=== PATIENT | male | born 1955 | race Caucasian/White ===

== ENCOUNTER 2018-07-30 10:34 | Emergency (ER) | payer MEDICAID ==
[~2018-07-30] VITALS: Ht 175.3 cm; Wt 91.7 kg
[~2018-07-30 10:34] MED LIST: METF500T27
--- NOTE | 2018-07-30 11:23 | NUR ---
PT REPORTS PAIN IN BOTH SHOULDERS X 2 MONTHS WITH LIMITED ACTIVE ROM. PT REPORTS PAIN IN HIS RIGHT HAND THAT HAS GOTTEN PROGRESSIVELY WORSE SINCE 2010. PAIN IN ALL LOCATIONS RATED 9/10.
[2018-07-30 11:26] VITALS: BP 143/84
--- NOTE | 2018-07-30 11:51 | NUR ---
ER MD TO ROOM TO ASSESS PT
[2018-07-30 12:08] LABS: BASOPHILS # (AUTO) 0.03 x10^3/uL (0-0.1); BASOPHILS % (AUTO) 0 % (0-1); EOSINOPHILS # (AUTO) 0.16 x10^3/uL (0-0.4); EOSINOPHILS % (AUTO) 2 % (1-7); LYMPHOCYTES # (AUTO) 1.84 x10^3/uL (1-3.4); LYMPHOCYTES % (AUTO) 23 % (22-44); MD NO; MEAN CORPUSCULAR HEMOGLOBIN 32.3 pg (27.5-34.5); MEAN CORPUSCULAR HGB CONC 34.1 g/dL (33.2-36.2); MEAN CORPUSCULAR VOLUME 94.8 fL (81-97); MEAN PLATELET VOLUME 7.9 fL (7.4-10.4); MONOCYTES # (AUTO) 0.44 x10^3/uL (0.2-0.8); MONOCYTES % (AUTO) 6 % (2-9); NEUTROPHILS # (AUTO) 5.36 x10^3/uL (1.8-6.8); NEUTROPHILS % (AUTO) 68 % (42-75); PLATELET COUNT 261 x10^3/uL (130-400); RED BLOOD COUNT 5.23 x10^6/uL (4.38-5.82); RED CELL DISTRIBUTION WIDTH 13.5 % (9.4-14.8)
[2018-07-30 12:21] LABS: CHLORIDE 107 mmol/L (98-107)
[2018-07-30 12:52] LABS: ANION GAP 8 mmol/L (5-15); CALCIUM 8.8 mg/dL (8.5-10.1); CREATININE 0.83 mg/dL (0.7-1.3)
--- NOTE | 2018-07-30 12:52 | NUR ---
preceptor rn: lab called to inquire about delay in chem panel, per Sarah in lab the chem should be completed by 1255.
--- NOTE | 2018-07-30 13:35 | NUR ---
PT AMBULATORY TO BR
== END 2018-07-30 13:57 | disposition home or self-care (01) ==
LOC: ED 13:41
DX: G56.01 Carpal tunnel syndrome, right upper limb (principal); G89.29 Other chronic pain; M25.512 Pain in left shoulder; M25.511 Pain in right shoulder; E11.65 Type 2 diabetes mellitus with hyperglycemia; I10 Essential (primary) hypertension; Z72.9 Problem related to lifestyle, unspecified
CPT/HCPCS: 36415; 80048; 82962; 85025; 93005; 99284

== ENCOUNTER 2018-08-05 16:09 | Inpatient (IN) | payer MEDICAID ==
[~2018-08-05] VITALS: Ht 177.8 cm; Wt 91.3 kg
[2018-08-05] MEDS ORDERED: SODIUM CHLORIDE FLUSH 10ML SYR IVF ONE (16:30)
[2018-08-05 16:52] LABS: PH, VENOUS 7.421 pH (7.320-7.420)
[2018-08-05 16:55] LABS: O2 FLOW ROOM AIR L/min
[2018-08-05 16:56] LABS: MEAN CORPUSCULAR HEMOGLOBIN 31.5 pg (27.5-34.5); MEAN CORPUSCULAR HGB CONC 33.1 g/dL (33.2-36.2); MEAN PLATELET VOLUME 8.1 fL (7.4-10.4); PLATELET COUNT 278 x10^3/uL (130-400); RED BLOOD COUNT 6.01 x10^6/uL (4.38-5.82); RED CELL DISTRIBUTION WIDTH 13.5 % (9.4-14.8)
[2018-08-05] MEDS ORDERED: ONDANSETRON 2MG/ML, 2ML IVPush ONE (17:00)
[2018-08-05 17:07] LABS: ALANINE AMINOTRANSFERASE 53 U/L (12-78); ANION GAP 12 mmol/L (5-15); CALCIUM 9.8 mg/dL (8.5-10.1); CHLORIDE 104 mmol/L (98-107)
[2018-08-05] MEDS ORDERED: ONDANSETRON 2MG/ML, 2ML ONE (17:10)
[2018-08-05 17:13] LABS: ALKALINE PHOSPHATASE 85 U/L (45-117); BASOPHILS # (AUTO) 0.08 x10^3/uL (0-0.1); BASOPHILS % (AUTO) 1 % (0-1); CREATININE 2.25 mg/dL (0.7-1.3); EOSINOPHILS # (AUTO) 0.09 x10^3/uL (0-0.4); EOSINOPHILS % (AUTO) 1 % (1-7); LYMPHOCYTES # (AUTO) 2.25 x10^3/uL (1-3.4); LYMPHOCYTES % (AUTO) 17 % (22-44); MD NO; MONOCYTES % (AUTO) 8 % (2-9); NEUTROPHILS % (AUTO) 74 % (42-75); TOTAL PROTEIN 8.7 g/dL (6.4-8.2); TROPONIN I < 0.015 ng/mL (0.000-0.045)
[2018-08-05 17:18] LABS: ACETONE, SERUM Negative (Negative)
--- NOTE | 2018-08-05 17:19 | NUR ---
"I THINK I HAVE HEPATITIS AGAIN." PT REPORTS ABD PAIN AND CONCENTRATED URINE. FEVERS AT HOME PER PT. PT AAO X 4, STEADY GAIT. DRESSED IN GOWN AND ATTACHED TO MONITOR. SIDERAILS IN PLACE AND CALL LIGHT AND BELONGINGS IN REACH. EDUCATION PROVIDED.
[2018-08-05] MEDS ORDERED: SODIUM CHLORIDE 0.9% 1,000 ML IV ONE (17:54)
[2018-08-05] MEDS ORDERED: INSULIN REGULAR 100 UNITS/ML, 3ML VIAL SQ-INSULIN ONE (18:00)
[2018-08-05 18:11] LABS: CHOLESTEROL, TOTAL 236 mg/dL (140-239); TRIGLYCERIDES 416 mg/dL (50-200)
[2018-08-05 18:12] LABS: INTERNATIONAL NORMALIZED RATIO 1.05 (0.93-1.1)
[2018-08-05 18:14] LABS: CHOL/HDL RATIO 7.6; HDL CHOL % 13 % (26-37); HDL CHOLESTEROL (DIRECT) 31 mg/dL (40-60)
--- NOTE | 2018-08-05 18:59 | NUR ---
REPORT GIVEN TO DARNELL CRISTOBAL.
[2018-08-05 19:14] LABS: MICROSCOPIC INDICATED
[2018-08-05] MEDS ORDERED: INSULIN SINGLE DOSE, ER SQ-INSULIN ONE (19:30)
--- NOTE | 2018-08-05 19:34 | NUR ---
PT RESTING CALMLY, MEDICATED PERMAR, IV FLUIDS INFUSING, CALL LIGHT WITHIN REACH
[2018-08-05 19:39] LABS: CULTURE INDICATED? NO
[2018-08-05 19:48] VITALS: BP 121/82
[2018-08-05] MEDS ORDERED: ACETAMINOPHEN 325 MG TABLET PO PRN (21:00)
[2018-08-05] MEDS ORDERED: LABETALOL 5MG/ML, 20ML IVPush PRN (21:00)
[2018-08-05] MEDS ORDERED: ONDANSETRON 2MG/ML, 2ML IVPush PRN (21:00)
[2018-08-05 21:39] LABS: HEMOGLOBIN A1C 8.7 % (4.2-6.3)
[2018-08-05] MEDS: HEPARIN 5,000 UNITS/ML, 1ML SQ SCH (23:09)
[2018-08-05] MEDS: INSULIN LISPRO 100 UNITS/ML, PEN SQ-INSULIN SCH (23:10)
[2018-08-05] MEDS: LACTATED RINGERS 1,000 ML IV SCH (23:17)
[2018-08-06 01:47] VITALS: BP 115/75
[2018-08-06 05:37] LABS: BASOPHILS # (AUTO) 0.06 x10^3/uL (0-0.1); BASOPHILS % (AUTO) 1 % (0-1); EOSINOPHILS # (AUTO) 0.22 x10^3/uL (0-0.4); EOSINOPHILS % (AUTO) 2 % (1-7); LYMPHOCYTES % (AUTO) 35 % (22-44); MD NO; MEAN CORPUSCULAR HEMOGLOBIN 31.6 pg (27.5-34.5); MEAN CORPUSCULAR HGB CONC 33.1 g/dL (33.2-36.2); MEAN CORPUSCULAR VOLUME 95.3 fL (81-97); MEAN PLATELET VOLUME 8.1 fL (7.4-10.4); MONOCYTES # (AUTO) 0.67 x10^3/uL (0.2-0.8); MONOCYTES % (AUTO) 7 % (2-9); NEUTROPHILS % (AUTO) 56 % (42-75); PLATELET COUNT 239 x10^3/uL (130-400); RED CELL DISTRIBUTION WIDTH 13.5 % (9.4-14.8)
[2018-08-06 05:43] LABS: ANION GAP 9 mmol/L (5-15); CALCIUM 8.9 mg/dL (8.5-10.1); CHLORIDE 105 mmol/L (98-107)
[2018-08-06 05:58] LABS: CHOL/HDL RATIO 6.9; CHOLESTEROL, TOTAL 179 mg/dL (140-239); CREATININE 1.16 mg/dL (0.7-1.3); HDL CHOL % 15 % (26-37); HDL CHOLESTEROL (DIRECT) 26 mg/dL (40-60); LDL CHOLESTEROL,CALCULATED 88 mg/dL (54-169); LDL/HDL RATIO 3.4 (0.5-3.0); TRIGLYCERIDES 326 mg/dL (50-200); VLDL CHOLESTEROL 65 mg/dL (0-25)
[2018-08-06] MEDS: INSULIN LISPRO 100 UNITS/ML, PEN SQ-INSULIN SCH ×4 (07:00→21:11)
[2018-08-06] MEDS: HEPARIN 5,000 UNITS/ML, 1ML SQ SCH ×3 (07:00→21:11)
[2018-08-06 08:12] VITALS: BP 107/73
[2018-08-06] MEDS: LACTATED RINGERS 1,000 ML IV SCH ×2 (09:00→19:26)
[2018-08-06] MEDS: SENNA/DOCUSATE TABLET PO SCH (09:00)
[2018-08-06 15:59] VITALS: BP 123/80
[2018-08-06 19:41] VITALS: BP 112/68
[2018-08-06] MEDS: morphine SULFATE 10 MG/ML, 1ML IVPush PRN (20:04)
[2018-08-06] MEDS: OMEGA-3/FISH OIL CAPSULE PO SCH (21:00)
[2018-08-07 00:26] VITALS: BP 109/62
[2018-08-07 05:21] LABS: BASOPHILS # (AUTO) 0.06 x10^3/uL (0-0.1); BASOPHILS % (AUTO) 1 % (0-1); EOSINOPHILS # (AUTO) 0.28 x10^3/uL (0-0.4); EOSINOPHILS % (AUTO) 4 % (1-7); LYMPHOCYTES # (AUTO) 2.68 x10^3/uL (1-3.4); LYMPHOCYTES % (AUTO) 38 % (22-44); MD NO; MEAN CORPUSCULAR HEMOGLOBIN 32.2 pg (27.5-34.5); MEAN CORPUSCULAR VOLUME 94.9 fL (81-97); MEAN PLATELET VOLUME 8.2 fL (7.4-10.4); MONOCYTES # (AUTO) 0.47 x10^3/uL (0.2-0.8); MONOCYTES % (AUTO) 7 % (2-9); NEUTROPHILS # (AUTO) 3.59 x10^3/uL (1.8-6.8); NEUTROPHILS % (AUTO) 51 % (42-75); PLATELET COUNT 210 x10^3/uL (130-400); RED BLOOD COUNT 4.99 x10^6/uL (4.38-5.82); RED CELL DISTRIBUTION WIDTH 13.7 % (9.4-14.8)
[2018-08-07 05:33] LABS: ANION GAP 7 mmol/L (5-15); CALCIUM 8.6 mg/dL (8.5-10.1); CHLORIDE 109 mmol/L (98-107)
[2018-08-07 05:36] LABS: ALANINE AMINOTRANSFERASE 39 U/L (12-78); ALKALINE PHOSPHATASE 68 U/L (45-117); BILIRUBIN,TOTAL 0.6 mg/dL (0.2-1.0); CREATININE 0.78 mg/dL (0.7-1.3); TOTAL PROTEIN 6.7 g/dL (6.4-8.2)
[2018-08-07] MEDS: HEPARIN 5,000 UNITS/ML, 1ML SQ SCH ×3 (07:00→23:00)
[2018-08-07] MEDS: INSULIN LISPRO 100 UNITS/ML, PEN SQ-INSULIN SCH ×4 (07:00→20:06)
[2018-08-07 07:30] VITALS: BP 112/68
[2018-08-07] MEDS: OMEGA-3/FISH OIL CAPSULE PO SCH ×3 (07:58→20:08)
[2018-08-07] MEDS: SENNA/DOCUSATE TABLET PO SCH (07:58)
[2018-08-07] MEDS: LACTATED RINGERS 1,000 ML IV SCH (10:37)
[2018-08-07] MEDS: morphine SULFATE 10 MG/ML, 1ML IVPush PRN ×2 (10:46→20:07)
[2018-08-07 14:11] VITALS: BP 119/80
[2018-08-07 19:31] VITALS: BP 128/82
[2018-08-08] MEDS: LACTATED RINGERS 1,000 ML IV SCH (00:09)
[2018-08-08 01:36] VITALS: BP 114/74
[2018-08-08 05:29] LABS: BASOPHILS # (AUTO) 0.04 x10^3/uL (0-0.1); BASOPHILS % (AUTO) 1 % (0-1); EOSINOPHILS # (AUTO) 0.24 x10^3/uL (0-0.4); EOSINOPHILS % (AUTO) 3 % (1-7); LYMPHOCYTES # (AUTO) 2.69 x10^3/uL (1-3.4); LYMPHOCYTES % (AUTO) 38 % (22-44); MD NO; MEAN CORPUSCULAR HEMOGLOBIN 32.2 pg (27.5-34.5); MEAN CORPUSCULAR HGB CONC 33.8 g/dL (33.2-36.2); MEAN CORPUSCULAR VOLUME 95.1 fL (81-97); MEAN PLATELET VOLUME 8.2 fL (7.4-10.4); MONOCYTES # (AUTO) 0.43 x10^3/uL (0.2-0.8); MONOCYTES % (AUTO) 6 % (2-9); NEUTROPHILS # (AUTO) 3.74 x10^3/uL (1.8-6.8); NEUTROPHILS % (AUTO) 52 % (42-75); PLATELET COUNT 209 x10^3/uL (130-400); RED CELL DISTRIBUTION WIDTH 13.2 % (9.4-14.8)
[2018-08-08 05:35] LABS: ALBUMIN 2.9 g/dL (3.4-5.0); ANION GAP 6 mmol/L (5-15); CALCIUM 8.6 mg/dL (8.5-10.1); CHLORIDE 108 mmol/L (98-107)
[2018-08-08 05:39] LABS: ALANINE AMINOTRANSFERASE 41 U/L (12-78); ALKALINE PHOSPHATASE 68 U/L (45-117); BILIRUBIN,TOTAL 0.3 mg/dL (0.2-1.0); CREATININE 0.89 mg/dL (0.7-1.3); TOTAL PROTEIN 6.5 g/dL (6.4-8.2)
[2018-08-08 07:22] VITALS: BP 117/78
[2018-08-08] MEDS: SENNA/DOCUSATE TABLET PO SCH (07:44)
[2018-08-08] MEDS: OMEGA-3/FISH OIL CAPSULE PO SCH (07:44)
[2018-08-08] MEDS: HEPARIN 5,000 UNITS/ML, 1ML SQ SCH (07:45)
[2018-08-08] MEDS: INSULIN LISPRO 100 UNITS/ML, PEN SQ-INSULIN SCH (07:49)
[2018-08-08] MEDS ORDERED: OMEG1CAP6 PO (08:11)
[2018-08-08] MEDS ORDERED: METF500T PO (08:16)
== END 2018-08-08 10:26 | disposition home or self-care (01) | DRG 439 ==
LOC: ED 17:27 → EDIP 18:36 → 3NE 19:55 → DCLOUNGE 08-08 10:10
PROVIDERS: ADMIT Family Medicine; ATTEND Family Medicine
DX: K85.90 Acute pancreatitis without necrosis or infection, unspecified (principal); N17.9 Acute kidney failure, unspecified; E11.65 Type 2 diabetes mellitus with hyperglycemia; E78.1 Pure hyperglyceridemia; E86.0 Dehydration; F17.210 Nicotine dependence, cigarettes, uncomplicated; I15.8 Other secondary hypertension; K76.0 Fatty (change of) liver, not elsewhere classified; N28.1 Cyst of kidney, acquired; Z79.4 Long term (current) use of insulin; Z91.14 Patient's other noncompliance with medication regimen; I69.30 Unspecified sequelae of cerebral infarction
CPT/HCPCS: 36415; 74176; 74181; 76700; 80048; 80053; 80061; 81001; 82010; 82803; 82962; 83036; 83690; 84484; 85025; 85610; 87086; 87491; 87591; 93005; 96374; 99285; G0378; J1644; J2405; J1815; J2270; J7030; J7120

== ENCOUNTER 2018-08-15 15:09 | Emergency (ER) | payer MEDICAID ==
[~2018-08-15] VITALS: Ht 175.3 cm; Wt 90.2 kg
[~2018-08-15 15:09] MED LIST changes: +METF500T PO; +OMEG1CAP6 PO
[2018-08-15] MEDS ORDERED: ONDANSETRON 2MG/ML, 2ML IVPush ONE (15:30)
[2018-08-15] MEDS ORDERED: SODIUM CHLORIDE 0.9% 1,000ML IVBOLUS ONE (15:30)
[2018-08-15] MEDS ORDERED: MORPHINE SULFATE 4 MG/ML, 1ML IVPush PRN (15:30)
--- NOTE | 2018-08-15 15:40 | NUR ---
PT C/O ABD PAIN TODAY WHILE DOING YARDWORK WITH ABDOMINAL SWELLING. PT WAS RECENTLY DISCHARGED THIS MONTH FOR PANCREATITIS. IV STARTED. PT TAKEN TO RADIOLOGY BEFORE BEING ABLE TO MEDICATE.
[2018-08-15] MEDS ORDERED: ONDANSETRON 2MG/ML, 2ML ONE (15:42)
[2018-08-15] MEDS ORDERED: MORPHINE SULFATE 4 MG/ML, 1ML ONE (15:43)
[2018-08-15 15:46] LABS: BASOPHILS # (AUTO) 0.05 x10^3/uL (0-0.1); BASOPHILS % (AUTO) 1 % (0-1); EOSINOPHILS # (AUTO) 0.19 x10^3/uL (0-0.4); EOSINOPHILS % (AUTO) 2 % (1-7); LYMPHOCYTES # (AUTO) 2.64 x10^3/uL (1-3.4); LYMPHOCYTES % (AUTO) 29 % (22-44); MD NO; MEAN CORPUSCULAR HEMOGLOBIN 31.6 pg (27.5-34.5); MEAN CORPUSCULAR HGB CONC 33.5 g/dL (33.2-36.2); MEAN CORPUSCULAR VOLUME 94.4 fL (81-97); MONOCYTES # (AUTO) 0.88 x10^3/uL (0.2-0.8); MONOCYTES % (AUTO) 10 % (2-9); NEUTROPHILS # (AUTO) 5.27 x10^3/uL (1.8-6.8); NEUTROPHILS % (AUTO) 58 % (42-75); PLATELET COUNT 269 x10^3/uL (130-400); RED BLOOD COUNT 5.35 x10^6/uL (4.38-5.82)
[2018-08-15 15:58] LABS: ALANINE AMINOTRANSFERASE 52 U/L (12-78); ANION GAP 9 mmol/L (5-15); CALCIUM 9.5 mg/dL (8.5-10.1); CHLORIDE 103 mmol/L (98-107); CREATININE 1.24 mg/dL (0.7-1.3)
[2018-08-15 16:00] LABS: ALKALINE PHOSPHATASE 78 U/L (45-117); BILIRUBIN,TOTAL 0.8 mg/dL (0.2-1.0); TOTAL PROTEIN 8.3 g/dL (6.4-8.2)
--- NOTE | 2018-08-15 16:25 | NUR ---
UA COLLECTED AND SENT TO THE LAB.
[2018-08-15 16:49] LABS: MICROSCOPIC INDICATED
[2018-08-15] MEDS ORDERED: METOCLOPRAMIDE 5 MG/ML, 2ML IVPush ONE (17:00)
[2018-08-15 17:09] LABS: CULTURE INDICATED? NO
[2018-08-15] MEDS ORDERED: METOCLOPRAMIDE 5 MG/ML, 2ML ONE (17:12)
--- NOTE | 2018-08-15 17:30 | NUR ---
LUNCH RN: MD TO BEDSIDE TO UPDATE PT ON POC AND RECHECK
--- NOTE | 2018-08-15 17:36 | NUR ---
LUNCH RN: PO CHALLENGE INITIATED, PT TAKING SIPS OF WATER IN ROOM AT THIS TIME
--- NOTE | 2018-08-15 17:59 | NUR ---
CORTES RN: PHARM REQUEST SENT
[2018-08-15] MEDS ORDERED: metFORMIN 500 MG TABLET PO ONE (18:00)
[2018-08-15 18:06] VITALS: BP 123/79
== END 2018-08-15 18:16 | disposition home or self-care (01) ==
LOC: ED 16:37
DX: R10.84 Generalized abdominal pain (principal); E11.65 Type 2 diabetes mellitus with hyperglycemia; F17.200 Nicotine dependence, unspecified, uncomplicated; Z86.73 Personal history of transient ischemic attack (TIA), and cerebral infarction without residual deficits
CPT/HCPCS: 36415; 74022; 80053; 81001; 82962; 83690; 85025; 96361; 96374; 96375; 99284; J2270; J2405; J2765; J7030

== ENCOUNTER 2019-02-18 01:02 | Emergency (ER) | payer MEDICAID ==
[~2019-02-18] VITALS: Ht 175.3 cm; Wt 93.2 kg
[2019-02-18] MEDS ORDERED: KETOROLAC 30 MG/1 ML ONE (01:40)
[2019-02-18 01:54] LABS: BASOPHILS # (AUTO) 0.05 x10^3/uL (0-0.1); BASOPHILS % (AUTO) 1 % (0-1); EOSINOPHILS # (AUTO) 0.22 x10^3/uL (0-0.4); EOSINOPHILS % (AUTO) 3 % (1-7); LYMPHOCYTES # (AUTO) 2.41 x10^3/uL (1-3.4); LYMPHOCYTES % (AUTO) 30 % (22-44); MD NO; MEAN CORPUSCULAR HEMOGLOBIN 32.4 pg (27.5-34.5); MEAN CORPUSCULAR HGB CONC 33.9 g/dL (33.2-36.2); MEAN CORPUSCULAR VOLUME 95.5 fL (81-97); MEAN PLATELET VOLUME 8.3 fL (7.4-10.4); MONOCYTES % (AUTO) 9 % (2-9); NEUTROPHILS # (AUTO) 4.62 x10^3/uL (1.8-6.8); NEUTROPHILS % (AUTO) 58 % (42-75); PLATELET COUNT 266 x10^3/uL (130-400); RED BLOOD COUNT 5.01 x10^6/uL (4.38-5.82)
[2019-02-18] MEDS ORDERED: KETOROLAC 30 MG/1 ML IM ONE (02:00)
[2019-02-18 02:04] LABS: ANION GAP 5 mmol/L (5-15); CALCIUM 8.7 mg/dL (8.5-10.1); CHLORIDE 109 mmol/L (98-107); CREATININE 0.91 mg/dL (0.7-1.3)
[2019-02-18 02:08] LABS: TROPONIN I < 0.015 ng/mL (0.000-0.045)
--- NOTE | 2019-02-18 02:26 | NUR ---
PT MEDICATED, PAIN AT 7/10, NOW 2/10 RESTING COMFORTABLY.
--- NOTE | 2019-02-18 03:30 | NUR ---
PT RESTING WITH EYES CLOSED. MONITOR IN PLACE.
[2019-02-18 03:51] VITALS: BP 127/73
== END 2019-02-18 03:55 ==
LOC: ED 03:49
DX: R07.89 Other chest pain (principal); R05 Cough; M54.9 Dorsalgia, unspecified; Z72.9 Problem related to lifestyle, unspecified; F17.200 Nicotine dependence, unspecified, uncomplicated; I10 Essential (primary) hypertension; E11.9 Type 2 diabetes mellitus without complications
CPT/HCPCS: 36415; 71046; 80048; 84484; 85025; 93005; 96372; 99284; J1885

== ENCOUNTER 2019-04-02 08:52 | Emergency (ER) | payer SELFPAY ==
[~2019-04-02] VITALS: Ht 177.8 cm; Wt 88.0 kg
[2019-04-02 08:59] VITALS: BP 151/90
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
[2019-04-02] MEDS ORDERED: DIPH,PERTUSS(ACELL),TET VAC/PF 0.5 ML IM-VACC ONE ×2 (10:08→10:30)
--- NOTE | 2019-04-02 10:16 | NUR ---
FSBS 137
== END 2019-04-02 10:51 | disposition home or self-care (01) ==
LOC: EDBD → ED 10:45
DX: S80.811A Abrasion, right lower leg, initial encounter (principal); S80.812A Abrasion, left lower leg, initial encounter; L03.115 Cellulitis of right lower limb; L03.116 Cellulitis of left lower limb; I10 Essential (primary) hypertension; E11.9 Type 2 diabetes mellitus without complications; V18.4XXA Pedal cycle driver injured in noncollision transport accident in traffic accident, initial encounter; Y93.55 Activity, bike riding; Y92.410 Unspecified street and highway as the place of occurrence of the external cause; Y99.8 Other external cause status
CPT/HCPCS: 90471; 90715

== ENCOUNTER 2019-04-04 14:39 | Emergency (ER) | payer SELFPAY ==
[~2019-04-04] VITALS: Ht 177.8 cm; Wt 88.0 kg
[2019-04-04 14:43] VITALS: BP 132/82
[2019-04-04] MEDS ORDERED: KETOROLAC 30 MG/1 ML ONE (15:22)
[2019-04-04] MEDS ORDERED: SULFAMETH./TRIMETHOPRIM DS 800MG/160MG TABLET ONE (15:23)
[2019-04-04] MEDS ORDERED: KETOROLAC 30 MG/1 ML IM ONE (15:30)
[2019-04-04] MEDS ORDERED: SULFAMETH./TRIMETHOPRIM DS 800MG/160MG TABLET PO ONE (15:30)
== END 2019-04-04 16:13 | disposition home or self-care (01) ==
LOC: ED 15:01
DX: L03.116 Cellulitis of left lower limb (principal); L03.115 Cellulitis of right lower limb; E11.649 Type 2 diabetes mellitus with hypoglycemia without coma; I10 Essential (primary) hypertension; F17.200 Nicotine dependence, unspecified, uncomplicated
CPT/HCPCS: 96372; 99283; J1885

== ENCOUNTER 2019-04-08 16:41 | Emergency (ER) | payer MEDICARE ==
[~2019-04-08] VITALS: Ht 175.3 cm; Wt 88.2 kg
[2019-04-08 16:48] VITALS: BP 159/91
[2019-04-08] MEDS ORDERED: SULFAMETH./TRIMETHOPRIM DS 800MG/160MG TABLET ONE (17:36)
[2019-04-08] MEDS ORDERED: metFORMIN 500 MG TABLET ONE (17:36)
[2019-04-08] MEDS ORDERED: SULFAMETH./TRIMETHOPRIM DS 800MG/160MG TABLET PO ONE (18:00)
[2019-04-08] MEDS ORDERED: metFORMIN 500 MG TABLET PO ONE (18:00)
[2019-04-08] MEDS ORDERED: NEOSPORIN OINT. PKT 1 PACKET ONE (18:22)
== END 2019-04-08 19:37 | disposition home or self-care (01) ==
LOC: ED 19:30
DX: E11.65 Type 2 diabetes mellitus with hyperglycemia (principal); M54.5 Low back pain; M54.6 Pain in thoracic spine; I10 Essential (primary) hypertension; E11.9 Type 2 diabetes mellitus without complications; Z86.73 Personal history of transient ischemic attack (TIA), and cerebral infarction without residual deficits; F17.210 Nicotine dependence, cigarettes, uncomplicated
CPT/HCPCS: 99283

== ENCOUNTER 2019-05-13 21:44 | Emergency (ER) | payer MEDICARE ==
[~2019-05-13] VITALS: Ht 175.3 cm; Wt 88.6 kg
[~2019-05-13 21:44] MED LIST changes: +ACET325T26 PO; +ENOX40SY4 SQ; +GABA300C10 PO; +INSU100I11 SQ-INSULIN; +METH500T7 PO; +POLY17PO5 PO
[2019-05-13 22:21] VITALS: BP 146/86
[2019-05-13] MEDS ORDERED: METHOCARBAMOL 750 MG TABLET PO ONE (22:30)
[2019-05-13] MEDS ORDERED: METHOCARBAMOL 750 MG TABLET ONE (22:52)
[2019-05-13] MEDS ORDERED: LORazepam 2 MG/ML, 1ML ONE (22:56)
--- NOTE | 2019-05-13 22:57 | NUR ---
Pt placed on 3lpm O2 for room air SpO2 of 83%. Pt states he is currently not able to take deep breaths d/t pain.
--- NOTE | 2019-05-14 00:52 | NUR ---
PT D/C WITH D/C SUMMARY AND SCRIPT IN WHEELCHAIR. PT CALLING STAFF BY [employer]SCENE NAMES. PT REFUSING D/C PAPERWORK AND TAXI VOUCHER AND SCRIPTS AND STATES "YOU CAN ALL WIPE YOUR ASSES WITH IT". SECURITY NOTIFIED THAT PT IS IN LOBBY REFUSING TO ASSIST US WITH D/C HOME. PT REFUSES TO GO TO THE HOMELESS HALF-WAY AND CONTINUES TO TELL THIS RN TO "FUCK OFF".
--- NOTE | 2019-05-14 00:55 | NUR ---
PT IV D/C WITH TIP INTACT PRIOR TO PT BEING WHEELED TO LOBBY.
== END 2019-05-14 00:59 | disposition home or self-care (01) ==
LOC: ED 05-14
DX: S32.021A Stable burst fracture of second lumbar vertebra, initial encounter for closed fracture (principal); M54.5 Low back pain; I10 Essential (primary) hypertension; E11.65 Type 2 diabetes mellitus with hyperglycemia; Z86.73 Personal history of transient ischemic attack (TIA), and cerebral infarction without residual deficits; Z87.891 Personal history of nicotine dependence; V19.9XXA Pedal cyclist (driver) (passenger) injured in unspecified traffic accident, initial encounter; Y93.89 Activity, other specified; Y92.410 Unspecified street and highway as the place of occurrence of the external cause; Y99.8 Other external cause status
CPT/HCPCS: 72128; 72131; 93005; 99285

== ENCOUNTER 2019-06-24 18:28 | Emergency (ER) | payer MEDICARE ==
[~2019-06-24] VITALS: Ht 175.3 cm; Wt 95.5 kg
[2019-06-24] MEDS ORDERED: SODIUM CHLORIDE FLUSH 10ML SYR IVF ONE (19:00)
[2019-06-24] MEDS ORDERED: SODIUM CHLORIDE 0.9% 1,000ML IVBOLUS ONE (19:00)
--- NOTE | 2019-06-24 19:03 | NUR ---
ASSUMED CARE OF PATIENT. REPORT GIVEN FROM SUSU ANAYA
[2019-06-24 19:04] LABS: BASOPHILS # (AUTO) 0.04 x10^3/uL (0-0.1); BASOPHILS % (AUTO) 0 % (0-1); EOSINOPHILS # (AUTO) 0.09 x10^3/uL (0-0.4); EOSINOPHILS % (AUTO) 1 % (1-7); LYMPHOCYTES # (AUTO) 2.45 x10^3/uL (1-3.4); LYMPHOCYTES % (AUTO) 25 % (22-44); MD NO; MEAN CORPUSCULAR HEMOGLOBIN 32.4 pg (27.5-34.5); MEAN CORPUSCULAR HGB CONC 34.6 g/dL (33.2-36.2); MEAN CORPUSCULAR VOLUME 93.5 fL (81-97); MEAN PLATELET VOLUME 8.6 fL (7.4-10.4); MONOCYTES # (AUTO) 0.75 x10^3/uL (0.2-0.8); MONOCYTES % (AUTO) 8 % (2-9); NEUTROPHILS # (AUTO) 6.39 x10^3/uL (1.8-6.8); NEUTROPHILS % (AUTO) 66 % (42-75); PLATELET COUNT 192 x10^3/uL (130-400); RED BLOOD COUNT 5.35 x10^6/uL (4.38-5.82); RED CELL DISTRIBUTION WIDTH 14.7 % (9.4-14.8)
--- NOTE | 2019-06-24 19:28 | NUR ---
LAB IN ROOM DOING REDRAW
[2019-06-24 19:57] LABS: ALANINE AMINOTRANSFERASE 44 U/L (12-78); ALBUMIN 3.3 g/dL (3.4-5.0); ANION GAP 11 mmol/L (5-15); CALCIUM 9.4 mg/dL (8.5-10.1); CHLORIDE 97 mmol/L (98-107); CREATININE 1.11 mg/dL (0.7-1.3)
[2019-06-24 19:59] LABS: ALKALINE PHOSPHATASE 70 U/L (45-117); BILIRUBIN,TOTAL 0.6 mg/dL (0.2-1.0); TOTAL PROTEIN 7.7 g/dL (6.4-8.2)
[2019-06-24] MEDS ORDERED: INSULIN SINGLE DOSE, ER ONE (20:16)
[2019-06-24 20:17] LABS: MICROSCOPIC NOT IND
[2019-06-24] MEDS ORDERED: INSULIN REGULAR 100 UNITS/ML, 3ML VIAL IVPush ONE (20:30)
--- NOTE | 2019-06-24 20:35 | NUR ---
PT WATCHING TV IN ROOM. NO ACUTE DISTRESS NOTED. CALL LIGHT IN PLACE. WILL CONTINUE TO MONITOR.
[2019-06-24 20:46] LABS: CULTURE INDICATED? NO
[2019-06-24 20:51] VITALS: BP 120/82
--- NOTE | 2019-06-24 21:02 | NUR ---
DR BATISTA AWARE OF PATIENT'S BLOOD SURGAR FSBS 335 PT TO BE DISCHARGED PER DR BATISTA.
--- NOTE | 2019-06-24 21:16 | NUR ---
PT REPORTS HE WANTS TO BE ADMITTED. PT WAS DICHARGED FROM [facility] YESTERDAY. PT REFUSED TAXI VOUCHER AND BUS PASS WELL CRACKERS AND BEVERAGES. PT REFUSED TO WAIT FOR DISCHARGE PAPERWORK. VERBAL DISCHARGE INSTRUCTIONS WERE GIVEN. PT DISCHARGED PER DR BATISTA.
== END 2019-06-24 21:19 | disposition home or self-care (01) ==
LOC: ED 19:34 → UNDOADMIN 19:42 → EDIP 19:42
DX: K85.00 Idiopathic acute pancreatitis without necrosis or infection (principal); I10 Essential (primary) hypertension; E11.9 Type 2 diabetes mellitus without complications; Z86.73 Personal history of transient ischemic attack (TIA), and cerebral infarction without residual deficits
CPT/HCPCS: 80053; 81003; 82962; 83690; 85025; 96374; 99283; J1815; J7030

== ENCOUNTER 2019-06-25 12:43 | Emergency (ER) | payer MEDICARE ==
[~2019-06-25] VITALS: Ht 172.7 cm; Wt 92.0 kg
--- NOTE | 2019-06-25 13:02 | NUR ---
PT TO ROOM FROM LOBBY AT THIS TIME.
--- NOTE | 2019-06-25 13:07 | NUR ---
Break RN note: First contact with pt. Pt c/o diffuse abd and back pain since 2010, states he was seen here yesterday for the same and returned "Cause they didn't check anything." Pt states hx DM, non compliant with medications x6 years. Pt speaking in full sentences, resp even and unlabored. Pt able to transfer from wheelchair to gurney with slow but steady gait. Continuous oxygen and BP monitors applied, all safety measures observed. Awaiting provider eval.
[2019-06-25] MEDS ORDERED: SODIUM CHLORIDE FLUSH 10ML SYR IVF ONE (13:30)
[2019-06-25 14:01] LABS: MICROSCOPIC NOT IND
[2019-06-25 14:14] LABS: CULTURE INDICATED? NO
[2019-06-25 14:32] LABS: BASOPHILS # (AUTO) 0.03 x10^3/uL (0-0.1); BASOPHILS % (AUTO) 0 % (0-1); EOSINOPHILS # (AUTO) 0.07 x10^3/uL (0-0.4); EOSINOPHILS % (AUTO) 1 % (1-7); LYMPHOCYTES # (AUTO) 2.17 x10^3/uL (1-3.4); LYMPHOCYTES % (AUTO) 26 % (22-44); MD NO; MEAN CORPUSCULAR HEMOGLOBIN 31.8 pg (27.5-34.5); MEAN CORPUSCULAR HGB CONC 33.9 g/dL (33.2-36.2); MEAN PLATELET VOLUME 8.3 fL (7.4-10.4); MONOCYTES # (AUTO) 0.66 x10^3/uL (0.2-0.8); MONOCYTES % (AUTO) 8 % (2-9); NEUTROPHILS # (AUTO) 5.52 x10^3/uL (1.8-6.8); NEUTROPHILS % (AUTO) 65 % (42-75); PLATELET COUNT 199 x10^3/uL (130-400); RED BLOOD COUNT 5.26 x10^6/uL (4.38-5.82); RED CELL DISTRIBUTION WIDTH 14.8 % (9.4-14.8)
[2019-06-25 14:40] LABS: ALANINE AMINOTRANSFERASE 51 U/L (12-78); ALBUMIN 3.1 g/dL (3.4-5.0); ANION GAP 7 mmol/L (5-15); CALCIUM 8.9 mg/dL (8.5-10.1); CHLORIDE 102 mmol/L (98-107); CREATININE 0.89 mg/dL (0.7-1.3)
--- NOTE | 2019-06-25 14:40 | NUR ---
OTIS (RN) IS ASSUMING CARE OF THIS PT AT THIS TIME. SBAR REPORT WAS EXCHANGED AT THE BEDSIDE.
[2019-06-25 14:42] LABS: ALKALINE PHOSPHATASE 65 U/L (45-117); BILIRUBIN,TOTAL 0.4 mg/dL (0.2-1.0); TOTAL PROTEIN 7.1 g/dL (6.4-8.2)
--- NOTE | 2019-06-25 14:51 | NUR ---
ASSUMED CARE OF PATIENT. REPORT GIVEN FROM SUSU SAVAGE. PT IS RESTING IN ROOM WITH EYES CLOSED. REGULAR RESP. VS STABLE. NO ACUTE DISTRESS NOTED. CALL LIGHT IN PLACE. WILL CONTINUE TO MONITOR.
--- NOTE | 2019-06-25 15:10 | NUR ---
PT IS AT CT
--- NOTE | 2019-06-25 15:26 | NUR ---
PT BACK FROM CT AND WATCHING TV. VS STABLE. CALL LIGHT IN PLACE. WILL CONTINUE TO MONITOR.
--- NOTE | 2019-06-25 15:42 | NUR ---
PT READY FOR DC. PT GIVEN JUICE AND CRACKERS. VS STABLE.
--- NOTE | 2019-06-25 16:07 | NUR ---
PT GIVEN A LIST OF SHELTERS. PT LEFT BEFORE WRITTEN INSTRUCTIONS COULD BE GIVEN.
--- NOTE | 2019-06-25 16:12 | NUR ---
PT RETURNED FOR HIS DISCHARGED INSTUCTIONS. PT UPSET HE IS BEING DISCHARGED. PT GIVEN CRACKERS AND JUICE. PT GIVEN A TAXI VOUCHER. VS STABLE. PT IS ABLE TO SAFELY AMBULATE AROUND ROOM AND GET SELF DRESSED. PT DISCHARGED BY DR GREENFIELD.
[2019-06-25 16:18] VITALS: BP 133/88
== END 2019-06-25 16:20 | disposition home or self-care (01) ==
LOC: ED 13:21
DX: R10.9 Unspecified abdominal pain (principal); E11.65 Type 2 diabetes mellitus with hyperglycemia; I10 Essential (primary) hypertension; Z86.73 Personal history of transient ischemic attack (TIA), and cerebral infarction without residual deficits
CPT/HCPCS: 36415; 74176; 80053; 81003; 83690; 85025; 99284

== ENCOUNTER 2019-12-31 13:36 | Emergency (ER) | payer MEDICARE ==
[~2019-12-31] VITALS: Ht 177.8 cm; Wt 95.6 kg
[2019-12-31] MEDS ORDERED: KETOROLAC 30 MG/1 ML IM ONE (14:30)
[2019-12-31 14:48] LABS: BASOPHILS % (AUTO) 1 % (0-1); EOSINOPHILS % (AUTO) 1 % (1-7); LYMPHOCYTES % (AUTO) 21 % (22-44); MEAN CORPUSCULAR HEMOGLOBIN 32.1 pg (27.5-34.5); MEAN CORPUSCULAR HGB CONC 34.5 g/dL (33.2-36.2); MEAN PLATELET VOLUME 8.5 fL (7.4-10.4); MONOCYTES % (AUTO) 14 % (2-9); NEUTROPHILS % (AUTO) 64 % (42-75); PLATELET COUNT 215 x10^3/uL (130-400)
[2019-12-31 14:54] LABS: MD NO
[2019-12-31 14:59] LABS: ALBUMIN 3.9 g/dL (3.4-5.0); ANION GAP 3 mmol/L (5-15); CHLORIDE 107 mmol/L (98-107); CREATININE 0.84 mg/dL (0.7-1.3)
[2019-12-31] MEDS ORDERED: KETOROLAC 30 MG/1 ML ONE (15:23)
[2019-12-31 16:43] VITALS: BP 131/77
== END 2019-12-31 16:48 | disposition home or self-care (01) ==
LOC: ED 16:20
DX: B34.9 Viral infection, unspecified (principal); G89.29 Other chronic pain; M54.5 Low back pain; R06.02 Shortness of breath; R05 Cough; E11.9 Type 2 diabetes mellitus without complications; Z87.891 Personal history of nicotine dependence
CPT/HCPCS: 36415; 71045; 80048; 82040; 83605; 83880; 85025; 87040; 93005; 96372; 99285; J1885

== ENCOUNTER 2020-04-07 14:13 | Inpatient (IN) | payer MEDICARE ==
[~2020-04-07] VITALS: Ht 175.3 cm; Wt 90.6 kg
[~2020-04-07 14:13] MED LIST changes: +METH-639 PO; -METH500T7 PO
--- NOTE | 2020-04-07 14:33 | NUR ---
ER PROVIDER AT BEDSIDE FOR EVALUATION.
--- NOTE | 2020-04-07 14:34 | NUR ---
PATIENT BIB [facility] WITH CHIEF C/O INCREASED WEAKNESS AND FALLS. PER EMS PATIENT WAS SEEN AT [facility] LAST WEEK FOR A FALL AT THE [facility] P[facility], PATIENT WAS DISCHARGED AND NO IMAGING DONE. PER EMS PATIENT'S WEAKNESS AND FALLS HAS INCREASED OVER THE LAST WEEK. PATIENT GIVEN 500 OF TYLENOL, 600 IBUPROFEN, AND 3 MG IM MORPHINE EN ROUTE. PATIENT'S STATES PATIENT IS NOW HAVING A DIFFICULT TIME GETTING OUT OF BED. PATIENT'S MOST RECENT FALL WAS YESTERDAY. ZACKERY, CONNECTED TO PHLEBOTOMY TECHNOLOGIST, AT BEDSIDE, CALL LIGHT WITHIN REACH.
[2020-04-07 14:54] LABS: BASOPHILS % (AUTO) 2 % (0-1); EOSINOPHILS % (AUTO) 3 % (1-7); LYMPHOCYTES % (AUTO) 41 % (22-44); MEAN CORPUSCULAR HEMOGLOBIN 32.1 pg (27.5-34.5); MEAN CORPUSCULAR HGB CONC 34.4 g/dL (33.2-36.2); MEAN PLATELET VOLUME 7.8 fL (7.4-10.4); MONOCYTES % (AUTO) 9 % (2-9); NEUTROPHILS % (AUTO) 46 % (42-75); PLATELET COUNT 268 x10^3/uL (130-400); RED BLOOD COUNT 5.06 x10^6/uL (4.38-5.82); RED CELL DISTRIBUTION WIDTH 14.6 % (9.4-14.8)
[2020-04-07 14:55] LABS: MD NO
--- NOTE | 2020-04-07 15:01 | NUR ---
EDUCATED PATIENT ABOUT NEED FOR URINE SAMPLE, PATIENT STATES HE IS UNABLE TO URINATE AT THIS TIME. PATIENT STATES HE DOES NOT WANT A CATHETER, "ITS TOO PAINFUL, YOU WON'T STICK THAT IN ME."
--- NOTE | 2020-04-07 15:02 | NUR ---
PATIENT TO IMAGING.
[2020-04-07 15:06] LABS: ALANINE AMINOTRANSFERASE 32 U/L (12-78); ALBUMIN 3.2 g/dL (3.4-5.0); ANION GAP 9 mmol/L (5-15); CALCIUM 8.6 mg/dL (8.5-10.1); CHLORIDE 112 mmol/L (98-107)
--- NOTE | 2020-04-07 15:30 | NUR ---
Mahendra gonzalez in [facility] - 04/07/20 at 1533 by [email or web address] 1ST ATTEMPT TO CALL REPORT.
--- NOTE | 2020-04-07 15:34 | NUR ---
PATIENT RESTING IN GURNEY WATCHING TV, CONNECTED TO PUBLIC HEALTH SERVICE OFFICER, NADN, VSS. PATIENT STATING HE IS UNABLE TO URINATE, PATIENT REFUSING STRAIGHT CATH FOR URINE SAMPLE.
[2020-04-07 15:36] LABS: ALKALINE PHOSPHATASE 68 U/L (45-117); BILIRUBIN,TOTAL 0.2 mg/dL (0.2-1.0); TOTAL PROTEIN 7.3 g/dL (6.4-8.2)
[2020-04-07] MEDS ORDERED: CEFTRIAXONE PMX 1GM/50ML 50 ML ONE (15:55)
[2020-04-07] MEDS ORDERED: CEFTRIAXONE PMX 1GM/50ML 50 ML IV ONE (16:00)
[2020-04-07] MEDS ORDERED: SODIUM CHLORIDE FLUSH 10ML SYR IVF ONE (16:00)
[2020-04-07] MEDS ORDERED: AZITHROMYCIN 500 MG in SODIUM CHLORIDE 0.9% 250 ML IV ONE (16:00)
--- NOTE | 2020-04-07 16:44 | NUR ---
PATIENT RESTING IN GURNEY WATCHING TV, ROCEPHIN DONE INFUSING, ZITHROMAX HUNG. ZACKERY, VSS, AT BEDSIDE, CALL LIGHT WITHIN REACH. PATIENT STILL SAYING HE IS UNABLE TO URINATE, REFUSING STRAIGHT CATH FOR URINE SAMPLE.
--- NOTE | 2020-04-07 17:08 | NUR ---
URINE COLLECTED AND SENT TO LAB.
[2020-04-07 17:27] LABS: MICROSCOPIC NOT IND
[2020-04-07] MEDS ORDERED: MORPHINE SULFATE 4 MG/ML, 1ML IVPush PRN (17:30)
[2020-04-07] MEDS ORDERED: MORPHINE SULFATE 4 MG/ML, 1ML ONE (17:31)
[2020-04-07] MEDS ORDERED: ONDANSETRON 2MG/ML, 2ML ONE (17:31)
--- NOTE | 2020-04-07 17:35 | NUR ---
PATIENT AND UPDATED ON POC, PATIENT C/O BACK AND SHOULDER PAIN 09/09, PATIENT MEDICATED PER eMAR, NADN, VSS, CALL LIGHT WITHIN REACH.
[2020-04-07] MEDS ORDERED: ONDANSETRON 2MG/ML, 2ML IVPush ONE (18:00)
--- NOTE | 2020-04-07 18:43 | NUR ---
FOOD PROVIDED TO PATIENT, CONNECTED TO MONITOR, SITTING IN GURNEY WATCHING TV, CALL LIGHT WITHIN REACH.
--- NOTE | 2020-04-07 19:15 | NUR ---
report of pt from dago olmos and assuming care of pt at this time.
[2020-04-07] MEDS ORDERED: MELATONIN 5 MG TABLET PO PRN (21:00)
[2020-04-07] MEDS ORDERED: LIDODERM 5% PATCH TD PRN (21:00)
[2020-04-07] MEDS ORDERED: LABETALOL 5MG/ML, 20ML IVPush PRN (21:00)
[2020-04-07] MEDS: INSULIN LISPRO 100 UNITS/ML, PEN SQ-INSULIN SCH (21:00)
[2020-04-07] MEDS ORDERED: ACETAMINOPHEN 325 MG TABLET PO PRN (21:00)
[2020-04-07] MEDS ORDERED: DOCUSATE 100 MG CAPSULE PO PRN (21:00)
--- NOTE | 2020-04-07 21:02 | NUR ---
MRI FORM COMPLETED AND FAXED TO MRI AT THIS TIME.
[2020-04-07] MEDS ORDERED: INSULIN LISPRO 100 UNITS/ML, PEN ONE (21:20)
[2020-04-07] MEDS ORDERED: ENOXAPARIN 40 MG/0.4 ML ONE (21:20)
[2020-04-07] MEDS: ENOXAPARIN 40 MG/0.4 ML SQ SCH (21:22)
[2020-04-07] MEDS ORDERED: LORazepam 2 MG/ML, 1ML IVPush ONE (21:30)
[2020-04-07] MEDS ORDERED: LORazepam 2 MG/ML, 1ML ONE (21:31)
--- NOTE | 2020-04-07 21:35 | NUR ---
PT REFUSING MEDICATIONS PER MAR. PT REFUSING MRI. EDUCATION PROVIDED FOR 15 MINUTES ON NEED FOR MRI AND PT ADAMANTLY REFUSING. ERP AND HOSPITALIST NOTIFIED OF PT UNCOOPERATIVE.
--- NOTE | 2020-04-07 21:59 | NUR ---
COVID SWAB INITIATED AND THEN PATIENT REFUSED TO LET THIS RN SWAB OTHER NOSTRIL. PT STATES, "I WANT THE OUTSIDE OF MY NOSE DONE OR NOT AT ALL". SAMPLE ACCURACY QUESTIONABLE WITH LACK OF PT COOPERATION. ER APPLICATION DEVELOPMENT TEAM LEAD CELSO AND ERP NOTIFIED.
--- NOTE | 2020-04-07 22:30 | NUR ---
REPORT OF PT TO SUSU CABRERA. ALL QUESTIONS ANSWERED. PT NOTIFIED OF TRANSFER FROM ED TO FLOOR. ALL QUESTIONS ANSWERED.
[2020-04-07 22:59] VITALS: BP 132/80
[2020-04-08 02:37] VITALS: BP 101/61
[2020-04-08 06:57] VITALS: BP 112/70
[2020-04-08] MEDS: INSULIN LISPRO 100 UNITS/ML, PEN SQ-INSULIN SCH ×4 (07:00→20:14)
[2020-04-08 08:24] LABS: BASOPHILS % (AUTO) 1 % (0-1); EOSINOPHILS % (AUTO) 3 % (1-7); HCT (SEDRATE) 44.6 % (39.2-51.8); LYMPHOCYTES % (AUTO) 35 % (22-44); MEAN CORPUSCULAR HEMOGLOBIN 31.6 pg (27.5-34.5); MEAN PLATELET VOLUME 8.1 fL (7.4-10.4); MONOCYTES % (AUTO) 6 % (2-9); NEUTROPHILS % (AUTO) 55 % (42-75); PLATELET COUNT 227 x10^3/uL (130-400); RED BLOOD COUNT 4.79 x10^6/uL (4.38-5.82)
[2020-04-08 08:25] LABS: MD NO
[2020-04-08 08:36] LABS: ANION GAP 7 mmol/L (5-15); CALCIUM 8.4 mg/dL (8.5-10.1); CHLORIDE 114 mmol/L (98-107); CREATININE 0.68 mg/dL (0.7-1.3); D-DIMER 0.5 ug/mlFEU (0.00-0.52); INTERNATIONAL NORMALIZED RATIO 1.05 (0.93-1.1); PROTHROMBIN TIME 11.2 Seconds (9.6-11.5); TRIGLYCERIDES 271 mg/dL (50-200); VLDL CHOLESTEROL 54 mg/dL (0-25)
[2020-04-08 08:45] LABS: CHOL/HDL RATIO 6.1; CHOLESTEROL, TOTAL 182 mg/dL (140-239); HDL CHOL % 16 % (26-37); HDL CHOLESTEROL (DIRECT) 30 mg/dL (40-60); LDL CHOLESTEROL,CALCULATED 98 mg/dL (54-169); LDL/HDL RATIO 3.3 (0.5-3.0)
[2020-04-08 12:20] VITALS: BP 143/81
[2020-04-08] MEDS: CIPROFLOXACIN/HYDROCORTISONE EAR SUSP 0.2-1%, 10ML EACH EAR SCH ×2 (13:00→20:13)
[2020-04-08] MEDS: CEFTRIAXONE PMX 1GM/50ML 50 ML IV SCH (17:01)
[2020-04-08 19:50] VITALS: BP 111/54
[2020-04-08] MEDS: ATORVASTATIN 20 MG TABLET PO SCH (20:13)
[2020-04-08] MEDS: GABAPENTIN 300 MG CAPSULE PO SCH (20:14)
[2020-04-08] MEDS: ENOXAPARIN 40 MG/0.4 ML SQ SCH (20:14)
[2020-04-08] MEDS: AZITHROMYCIN 500 MG in SODIUM CHLORIDE 0.9% 250 ML IV SCH (21:59)
[2020-04-08 22:35] VITALS: BP 126/72
[2020-04-09 02:11] VITALS: BP 126/72
[2020-04-09 06:22] VITALS: BP 171/89
[2020-04-09] MEDS: INSULIN LISPRO 100 UNITS/ML, PEN SQ-INSULIN SCH ×4 (07:00→20:09)
[2020-04-09] MEDS: CIPROFLOXACIN/HYDROCORTISONE EAR SUSP 0.2-1%, 10ML EACH EAR SCH ×2 (09:00→20:03)
[2020-04-09] MEDS: AMLODIPINE 5 MG TABLET PO SCH (09:00)
[2020-04-09] MEDS: GABAPENTIN 300 MG CAPSULE PO SCH ×3 (09:00→20:03)
[2020-04-09 12:07] VITALS: BP 165/90
[2020-04-09] MEDS: CYCLOBENZAPRINE 10 MG TABLET PO SCH ×2 (16:07→20:02)
[2020-04-09] MEDS: OXYcodone/APAP 5/325MG TABLET PO PRN (16:08)
[2020-04-09] MEDS: CEFTRIAXONE PMX 1GM/50ML 50 ML IV SCH (16:08)
[2020-04-09 18:35] VITALS: BP 133/86
[2020-04-09] MEDS: AZITHROMYCIN 500 MG in SODIUM CHLORIDE 0.9% 250 ML IV SCH (20:02)
[2020-04-09] MEDS: ATORVASTATIN 20 MG TABLET PO SCH (20:02)
[2020-04-09] MEDS: ENOXAPARIN 40 MG/0.4 ML SQ SCH (20:03)
[2020-04-10 07:22] VITALS: BP 161/99
[2020-04-10] MEDS: GABAPENTIN 300 MG CAPSULE PO SCH ×3 (07:25→20:39)
[2020-04-10] MEDS: CYCLOBENZAPRINE 10 MG TABLET PO SCH ×3 (07:25→20:39)
[2020-04-10] MEDS: metFORMIN XR 500 MG TAB.ER.24H PO SCH (07:25)
[2020-04-10] MEDS: OXYcodone/APAP 5/325MG TABLET PO PRN ×2 (07:26→16:09)
[2020-04-10] MEDS: CIPROFLOXACIN/HYDROCORTISONE EAR SUSP 0.2-1%, 10ML EACH EAR SCH ×2 (07:29→20:41)
[2020-04-10] MEDS: AMLODIPINE 5 MG TABLET PO SCH (07:29)
[2020-04-10] MEDS ORDERED: LORazepam 1MG TABLET PO ONE (09:30)
[2020-04-10 13:54] VITALS: BP 142/87
[2020-04-10] MEDS: CEFTRIAXONE PMX 1GM/50ML 50 ML IV SCH (16:08)
[2020-04-10 18:27] VITALS: BP 158/90
[2020-04-10] MEDS: ENOXAPARIN 40 MG/0.4 ML SQ SCH (20:39)
[2020-04-10] MEDS: ATORVASTATIN 20 MG TABLET PO SCH (20:39)
[2020-04-10] MEDS: AZITHROMYCIN 500 MG in SODIUM CHLORIDE 0.9% 250 ML IV SCH (20:39)
[2020-04-11 00:09] VITALS: BP 114/76
[2020-04-11] MEDS: OXYcodone/APAP 5/325MG TABLET PO PRN ×3 (00:29→19:16)
[2020-04-11 07:31] VITALS: BP 130/68
[2020-04-11] MEDS: GABAPENTIN 300 MG CAPSULE PO SCH ×3 (07:57→20:40)
[2020-04-11] MEDS: CYCLOBENZAPRINE 10 MG TABLET PO SCH ×3 (07:57→20:40)
[2020-04-11] MEDS: AMLODIPINE 5 MG TABLET PO SCH (07:57)
[2020-04-11] MEDS: metFORMIN XR 500 MG TAB.ER.24H PO SCH (07:57)
[2020-04-11] MEDS: CIPROFLOXACIN/HYDROCORTISONE EAR SUSP 0.2-1%, 10ML EACH EAR SCH ×2 (08:00→20:40)
[2020-04-11 13:05] VITALS: BP 113/73
[2020-04-11] MEDS: CEFTRIAXONE PMX 1GM/50ML 50 ML IV SCH (15:59)
[2020-04-11 18:49] VITALS: BP 120/77
[2020-04-11] MEDS: AZITHROMYCIN 500 MG in SODIUM CHLORIDE 0.9% 250 ML IV SCH (20:40)
[2020-04-11] MEDS: ENOXAPARIN 40 MG/0.4 ML SQ SCH (20:40)
[2020-04-11] MEDS: ATORVASTATIN 20 MG TABLET PO SCH (20:40)
[2020-04-12 00:12] VITALS: BP 110/71
[2020-04-12] MEDS: OXYcodone/APAP 5/325MG TABLET PO PRN ×2 (02:24→09:33)
[2020-04-12 06:57] VITALS: BP 98/62
[2020-04-12] MEDS: metFORMIN XR 500 MG TAB.ER.24H PO SCH (08:14)
[2020-04-12] MEDS: CIPROFLOXACIN/HYDROCORTISONE EAR SUSP 0.2-1%, 10ML EACH EAR SCH (08:14)
[2020-04-12] MEDS: GABAPENTIN 300 MG CAPSULE PO SCH (08:15)
[2020-04-12] MEDS: AMLODIPINE 5 MG TABLET PO SCH (08:16)
[2020-04-12] MEDS: CYCLOBENZAPRINE 10 MG TABLET PO SCH (08:16)
[2020-04-12] MEDS ORDERED: METF500T3 PO (08:19)
[2020-04-12] MEDS ORDERED: ATOR20TA37 PO (08:19)
[2020-04-12] MEDS ORDERED: CYCL10TA2 PO (08:19)
[2020-04-12] MEDS ORDERED: GABA300C PO (08:19)
[2020-04-12] MEDS ORDERED: CIPR10DR EACH EAR (08:19)
[2020-04-12] MEDS ORDERED: AMLO-150 PO (08:19)
[2020-04-12] MEDS ORDERED: CEFD300C37 PO (10:33)
[2020-04-12] MEDS ORDERED: AZIT250T PO (10:34)
[2020-04-12 12:09] VITALS: BP 122/74
[2020-04-12] MEDS ORDERED: OXYC1TAB14 PO ×2 (12:09)
== END 2020-04-12 14:00 | DRG 551 ==
LOC: ED 16:44 → EDIP 21:56 → 4EST 22:44 → 3N 04-08 22:40
PROVIDERS: ADMIT Internal Medicine; ATTEND Hospitalist
DX: M48.061 Spinal stenosis, lumbar region without neurogenic claudication (principal); J18.9 Pneumonia, unspecified organism; M48.56XA Collapsed vertebra, not elsewhere classified, lumbar region, initial encounter for fracture; J44.0 Chronic obstructive pulmonary disease with (acute) lower respiratory infection; I69.354 Hemiplegia and hemiparesis following cerebral infarction affecting left non-dominant side; G89.29 Other chronic pain; I10 Essential (primary) hypertension; W18.30XA Fall on same level, unspecified, initial encounter; Z20.822 Contact with and (suspected) exposure to COVID-19; E11.42 Type 2 diabetes mellitus with diabetic polyneuropathy; H70.12 Chronic mastoiditis, left ear; R62.7 Adult failure to thrive; M19.90 Unspecified osteoarthritis, unspecified site; Z87.01 Personal history of pneumonia (recurrent); Z87.891 Personal history of nicotine dependence; Z91.81 History of falling; Z86.16 Personal history of COVID-19
CPT/HCPCS: 36415; 70450; 71045; 72110; 72148; 80048; 80053; 80061; 81003; 82962; 83036; 83615; 83735; 84100; 84145; 84439; 84443; 85025; 85379; 85384; 85610; 85651; 93005; 96365; 96367; 96375; 99285; G0378; J0456; J0696; J1650; J2405; J1815; J2270; J7050; U0003

== ENCOUNTER 2020-08-19 18:58 | Emergency (ER) | payer MEDICARE ==
[~2020-08-19] VITALS: Ht 175.3 cm; Wt 90.0 kg
[~2020-08-19 18:58] MED LIST changes: +AMLO-150 PO; +ATOR20TA37 PO; +AZIT250T PO; +CEFD300C37 PO; +CIPR10DR EACH EAR; +CYCL10TA2 PO; +GABA300C PO; +METF500T3 PO; +OXYC1TAB14 PO
--- NOTE | 2020-08-19 19:15 | NUR ---
BIB [facility] FROM HOME. PT C/O DIFFICULTY GETTING AROUND SMALL APARTMENT D/T SPINAL STENOSIS. PT DOES NOT HAVE A/C, PT C/O ANXIETY. PT NON COMPLIANT WITH HOME MEDS. DATA MANAGEMENT ANALYST [facility]: FSBG 486, PIV 20G LFA, 400ML NS. EKG COMPLETE. IVF CONTINUING TO INFUSE. PT CONNECTED TO MONITORING. CALL LIGHT IN REACH.
[2020-08-19] MEDS ORDERED: SODIUM CHLORIDE 0.9% 1,000ML IVBOLUS ONE (19:30)
--- NOTE | 2020-08-19 19:41 | NUR ---
SECOND LITER IVF STARTED. LAB AT BEDSIDE. PT PROVIDED URINAL TO PROVIDE URINE SAMPLE.
[2020-08-19 19:46] LABS: PH, VENOUS 7.357 pH (7.320-7.420)
[2020-08-19 19:47] LABS: BASOPHILS % (AUTO) 1 % (0-1); EOSINOPHILS % (AUTO) 2 % (1-7); LYMPHOCYTES % (AUTO) 27 % (22-44); MEAN CORPUSCULAR HEMOGLOBIN 32.4 pg (27.5-34.5); MEAN CORPUSCULAR HGB CONC 35.5 g/dL (33.2-36.2); MEAN PLATELET VOLUME 8.4 fL (7.4-10.4); MONOCYTES % (AUTO) 9 % (2-9); NEUTROPHILS % (AUTO) 62 % (42-75); PLATELET COUNT 233 x10^3/uL (130-400); RED BLOOD COUNT 5.35 x10^6/uL (4.38-5.82)
[2020-08-19 19:58] LABS: ALANINE AMINOTRANSFERASE 37 U/L (12-78); ALBUMIN 3.1 g/dL (3.4-5.0); ANION GAP 8 mmol/L (5-15); CALCIUM 8.3 mg/dL (8.5-10.1); CHLORIDE 99 mmol/L (98-107); CREATININE 1.09 mg/dL (0.7-1.3)
[2020-08-19 20:03] LABS: ALKALINE PHOSPHATASE 89 U/L (45-117); BILIRUBIN,TOTAL 0.4 mg/dL (0.2-1.0); TOTAL PROTEIN 7.4 g/dL (6.4-8.2); TROPONIN I < 0.015 ng/mL (0.000-0.045)
[2020-08-19 20:15] LABS: ACETONE, SERUM Small (20mg/dL) (Negative)
--- NOTE | 2020-08-19 20:25 | NUR ---
UA COLLECTED AND SENT TO LAB.
[2020-08-19] MEDS ORDERED: INSULIN REGULAR 100 UNITS/ML, 3ML VIAL IV ONE (20:30)
[2020-08-19] MEDS ORDERED: INSULIN LISPRO SINGLE DOSE, ER SQ-INSULIN ONE (20:33)
--- NOTE | 2020-08-19 20:38 | NUR ---
INSULIN VERIFIED WITH SECOND RN AND ADMIN PER MAR
[2020-08-19 20:43] LABS: MICROSCOPIC INDICATED
[2020-08-19] MEDS ORDERED: metFORMIN 500 MG TABLET ONE (21:07)
[2020-08-19 21:22] VITALS: BP 149/89
--- NOTE | 2020-08-19 21:26 | NUR ---
FSBG 318. METFORMIN ADMIN. ERMD OK TO [place] WITH FSBG. PT TRANSFERRED TO INDEPENDENTLY. PT WHEELED TO [place] WITH TAXI VOUCHER.
[2020-08-19] MEDS ORDERED: metFORMIN 500 MG TABLET PO ONE (21:30)
== END 2020-08-19 21:29 | disposition home or self-care (01) ==
LOC: ED 21:00
DX: M48.061 Spinal stenosis, lumbar region without neurogenic claudication (principal); M54.5 Low back pain; E11.65 Type 2 diabetes mellitus with hyperglycemia; I10 Essential (primary) hypertension; J44.9 Chronic obstructive pulmonary disease, unspecified; F17.200 Nicotine dependence, unspecified, uncomplicated; Z86.73 Personal history of transient ischemic attack (TIA), and cerebral infarction without residual deficits; Z86.19 Personal history of other infectious and parasitic diseases
CPT/HCPCS: 36415; 71045; 80053; 81001; 82010; 82803; 82962; 83690; 83735; 83880; 83930; 84100; 84484; 85025; 87086; 93005; 96361; 96374; 99285; J7030; J1815

== ENCOUNTER 2020-08-20 11:50 | Emergency (ER) | payer MEDICARE ==
[~2020-08-20] VITALS: Ht 175.3 cm; Wt 93.0 kg
[2020-08-20] MEDS ORDERED: SODIUM CHLORIDE 0.9% 1,000ML IVBOLUS ONE (12:00)
[2020-08-20] MEDS ORDERED: SODIUM CHLORIDE FLUSH 10ML SYR IVF ONE (12:00)
[2020-08-20] MEDS ORDERED: CEFDINIR 300 MG CAPSULE PO ONE (12:00)
[2020-08-20] MEDS ORDERED: PLEASE ENTER HEIGHT AND WEIGHT MC SCH (12:00)
[2020-08-20] MEDS ORDERED: metFORMIN 500 MG TABLET PO ONE (12:00)
[2020-08-20 12:02] VITALS: BP 120/78
[2020-08-20] MEDS ORDERED: CEFDINIR 300 MG CAPSULE ONE (12:18)
[2020-08-20] MEDS ORDERED: metFORMIN 500 MG TABLET ONE (12:18)
--- NOTE | 2020-08-20 12:21 | NUR ---
MEDS ADMIN PER DAHLIA. Addendum: 08/20/20 at 1254 by D[place] PT PROVIDED SNACKS
== END 2020-08-20 13:12 | disposition home or self-care (01) ==
LOC: ED 12:34
DX: E11.649 Type 2 diabetes mellitus with hypoglycemia without coma (principal); N39.0 Urinary tract infection, site not specified; I10 Essential (primary) hypertension; J44.9 Chronic obstructive pulmonary disease, unspecified; E11.40 Type 2 diabetes mellitus with diabetic neuropathy, unspecified; F17.200 Nicotine dependence, unspecified, uncomplicated; Z86.73 Personal history of transient ischemic attack (TIA), and cerebral infarction without residual deficits
CPT/HCPCS: 99284; Q0177

== ENCOUNTER 2020-08-26 11:34 | Emergency (ER) | payer MEDICARE, MEDICAID ==
[~2020-08-26] VITALS: Ht 175.3 cm; Wt 90.9 kg
[~2020-08-26 11:34] MED LIST changes: +OXYC1TAB12 PO; -OXYC1TAB14 PO
[2020-08-26] MEDS ORDERED: HYDROcodone/APAP 5/325 TABLET PO ONE (12:30)
[2020-08-26] MEDS ORDERED: CEFTRIAXONE 1,000 MG IM ONE (12:30)
[2020-08-26] MEDS ORDERED: CEFTRIAXONE 1,000 MG ONE (12:43)
[2020-08-26] MEDS ORDERED: HYDROcodone/APAP 5/325 TABLET ONE (12:44)
[2020-08-26 13:18] VITALS: BP 131/64
== END 2020-08-26 13:27 | disposition home or self-care (01) ==
LOC: ED 13:07
DX: A54.01 Gonococcal cystitis and urethritis, unspecified (principal); G89.29 Other chronic pain; M54.5 Low back pain; J44.9 Chronic obstructive pulmonary disease, unspecified; I10 Essential (primary) hypertension; E11.65 Type 2 diabetes mellitus with hyperglycemia; E11.40 Type 2 diabetes mellitus with diabetic neuropathy, unspecified
CPT/HCPCS: 96372; 99283; J0696

== ENCOUNTER 2020-09-10 12:55 | Emergency (ER) | payer MEDICARE, MEDICAID ==
[~2020-09-10] VITALS: Ht 175.3 cm; Wt 92.0 kg
[~2020-09-10 12:55] MED LIST changes: -OXYC1TAB12 PO; +OXYC1TAB14 PO
--- NOTE | 2020-09-10 13:10 | NUR ---
BIBA FOR SOB X2 WEEKS, PER REPORT PT HAS BEEN NON-COMPLIANT WITH MEDICATIONS, RECENTLY DIAGNOSED WITH GONORRHEA BUT NOT TAKING MEDS. BS 510 PER EMS. PLACED ON ALL MONITORS, FALL PRECAUTIONS IN PLACE.
[2020-09-10] MEDS ORDERED: HYDROcodone/APAP 10/325 MG TABLET ONE (14:26)
[2020-09-10] MEDS ORDERED: HYDROcodone/APAP 10/325 MG TABLET PO ONE (14:30)
--- NOTE | 2020-09-10 14:34 | NUR ---
PT REFUSED BLOOD DRAW FROM LAB. SPOKE WITH PT AND HE AGREED TO HAVE LABS DRAWN SO HE COULD BE TREATED.
[2020-09-10 14:47] LABS: BASOPHILS % (AUTO) 1 % (0-1); EOSINOPHILS % (AUTO) 2 % (1-7); LYMPHOCYTES % (AUTO) 40 % (22-44); MEAN CORPUSCULAR HEMOGLOBIN 32.2 pg (27.5-34.5); MEAN CORPUSCULAR HGB CONC 34.9 g/dL (33.2-36.2); MEAN PLATELET VOLUME 8.7 fL (7.4-10.4); MONOCYTES % (AUTO) 6 % (2-9); NEUTROPHILS % (AUTO) 51 % (42-75); PLATELET COUNT 243 x10^3/uL (130-400); RED BLOOD COUNT 5.67 x10^6/uL (4.38-5.82); RED CELL DISTRIBUTION WIDTH 13.9 % (9.4-14.8)
[2020-09-10 15:02] LABS: ALANINE AMINOTRANSFERASE 35 U/L (12-78); ALBUMIN 3.3 g/dL (3.4-5.0); ANION GAP 6 mmol/L (5-15); CALCIUM 8.6 mg/dL (8.5-10.1); CHLORIDE 100 mmol/L (98-107)
[2020-09-10 15:04] LABS: ALKALINE PHOSPHATASE 98 U/L (45-117); BILIRUBIN,TOTAL 0.5 mg/dL (0.2-1.0); TOTAL PROTEIN 8.1 g/dL (6.4-8.2)
[2020-09-10 15:52] VITALS: BP 110/71
== END 2020-09-10 16:31 | disposition home or self-care (01) ==
LOC: ED 13:57
DX: R06.00 Dyspnea, unspecified (principal); M54.5 Low back pain; I10 Essential (primary) hypertension; E11.65 Type 2 diabetes mellitus with hyperglycemia; E11.40 Type 2 diabetes mellitus with diabetic neuropathy, unspecified; J44.9 Chronic obstructive pulmonary disease, unspecified; F17.200 Nicotine dependence, unspecified, uncomplicated; Z86.73 Personal history of transient ischemic attack (TIA), and cerebral infarction without residual deficits
CPT/HCPCS: 36415; 71045; 80053; 85025; 93005; 99285